=== PATIENT | female | born 1990 | race African-American/Black ===

== ENCOUNTER 2017-09-19 14:58 | Outpatient (CLI) | payer MEDICAID ==
--- NOTE | 2017-09-19 16:04 | ULT ---
TRANSVAGINAL AND TRANSABDOMINAL PELVIC ULTRASOUND 09/19/17 INDICATION: Pelvic pain. TECHNIQUE: Quezada scale, color doppler, and vascular duplex with spectral analysis was performed of the pelvis via transabdominal and transvaginal approach. FINDINGS: There is mild free fluid in the pelvis. There is normal flow to both ovaries. Both ovaries are normal in size. There are small follicles seen bilaterally. The uterine stripe measures 7.5 mm. There is a linear defect involving the anterior aspect of the low er uterine body which may reflect sequela of prior . The uterus measures 8.8 x 4.6 x 5.5 cm. IMPRESSION: 1. No acute abnormality. 2. Mild free fluid in the pelvis may be physiologic in nature. 3. Linear defect involving the anterior aspect of the uterine body suspicious for prior C-sectio n scar. POS: [facility]
== END 2017-09-19 14:59 | disposition home or self-care (01) ==
LOC: SCSULT 14:58
PROVIDERS: ATTEND Nurse Practitioner Family
DX: R10.2 Pelvic and perineal pain (principal); R93.5 Abnormal findings on diagnostic imaging of other abdominal regions, including retroperitoneum
CPT/HCPCS: 76856